=== PATIENT | male | born 1995 | race Caucasian/White ===

== ENCOUNTER 2016-09-15 22:31 | Emergency (ER) | payer OTHER, BC ==
[~2016-09-15] VITALS: Ht 167.6 cm; Wt 72.6 kg
[~2016-09-15 22:31] MED LIST: IBP800T PO
[2016-09-15] MEDS ORDERED: HYDROcodone/APAP 5 MG/325 MG (LORTAB) TAB PO STA (22:52)
[2016-09-15] MEDS ORDERED: KETOROLAC 60 MG/2 ML VIAL IM STA (22:52)
--- NOTE | 2016-09-15 22:52 | ED Lower Extremity ---
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 He says that his right knee gave out underneath him and he felt the ground. He did not catch the and foot in the ladder nor did he injure his knee on the fall. He states in the past he has had [address] Paul for the meniscus on his right knee. He's previously injured his knee playing football. He says there is no swelling that the pain is to the point he cannot put weight on it. He came straight here from work and has not taken anything today. He does not have any numbness or tingling in his foot and he can only bear toe-touch pressure. He has crutches and a knee brace at home. Allergies and Home Medications Allergies Coded Allergies: No Known Drug Allergies (Unverified , 09/13/12) Home Medications Hydrocodone/Acetaminophen 1 Each Tablet, 1 EACH PO Q6H PRN for BREAKTHROUGH PAIN , #15 Ref 0 Prescribed by: DAMARIS ASHRAF on 09/15/16 8506 Constitutional: No chills, No diaphoresis, No fever, No malaise Respiratory: No cough, No short of breath Gastrointestinal: No constipation, No diarrhea, No nausea Genitourinary: No discharge, No dysuria Musculoskeletal: see HPI, No back pain, joint pain Skin: No pruritus, No rash Past Gurjbqj-Kgygoq-Aweiep Hx Patient Social History Alcohol Use: Occasionally Uses Recreational Drug Use: No Smoking Status: Current Everyday Smoker Type Used: Cigarettes 2nd Hand Smoke Exposure: Yes Recent Foreign Travel: No Contact w/Someone Who Travel: No Recent Infectious Disease Expo: No Recent Hopitalizations: No Immunizations Up To Date Tetanus Booster (TDap): Unknown PED Vaccines UTD: Yes Seasonal Allergies Seasonal Allergies: No Surgeries HX Surgeries: Yes Surgeries: Orthopedic Respiratory Hx Respiratory Disorders: No Cardiovascular Hx Cardiac Disorders: No Neurological Hx Neurological Disorders: No Reproductive System Hx Reproductive Disorders: No Genitourinary Hx Genitourinary Disorders: No Gastrointestinal Hx Gastrointestinal Disorders: No Musculoskeletal Hx Musculoskeletal Disorders: No Endocrine Hx Endocrine Disorders: No HEENT HX ENT Disorders: No Cancer Hx Cancer: No Psychosocial Hx Psychiatric Problems: No Family Medical History Significant Family History: No Pertinent Family Hx Physical Exam Vital Signs Vital Sign - Last 12Hours 09/15/16 22:38 Temp 97.8 Pulse 67 Resp 18 B/P (MAP) 130/79 Pulse Ox 98 O2 Delivery Room Air Capillary Refill : Less Than 3 Seconds General Appearance: WD/WN, mild distress Cardiovascular: normal peripheral pulses, regular rate, rhythm Respiratory: lungs clear, normal breath sounds Gastrointestinal: non tender, soft Knees: left knee non-tender, left knee normal inspection, left knee normal range of motion, left knee no evidence of injury (posterior and anterior drawer test negative. There is no laxity nor tenderness on the lateral or medial collateral ligaments.), right knee bone tenderness (lateral especially as well as the medial anterior tibial plateau enemas to palpation.) Ankles: bilateral ankle non-tender, bilateral ankle normal inspection, bilateral ankle normal range of motion Neurologic/Tendon: normal sensation, normal motor functions, normal tendon functions, responds to pain Neurologic/Psychiatric: no motor/sensory deficits, alert, oriented x 3 Skin: normal color, warm/dry Progress/Results/Core Measures Results/Orders My Orders Orders - DAMARIS ASHRAF Knee, Right, 3 Views (09/15/16 22:52) Hydrocodone/Apap 5/325 Tablet (Lortab 5 (09/15/16 22:52) Ketorolac Injection (Toradol Injection) (09/15/16 22:52) Vital Signs/I&O Vital Sign - Last 12Hours 09/15/16 22:38 Temp 97.8 Pulse 67 Resp 18 B/P (MAP) 130/79 Pulse Ox 98 O2 Delivery Room Air Blood Pressure Mean: 96 Progress Note : Time: 22:56 Progress Note We'll get some images and have him follow-up with Dr. Paul we'll give him some pain medicine and start him on some NSAIDs get him back in his knee brace when necessary he has crutches. Diagnostic Imaging Diagonstic Imaging: Xray Plain Films/CT/US/NM/MRI: knee Comments No acute osseous abnormalities noted. Reviewed: Reviewed by Me Departure Impression Impression: Primary Impression: Knee pain Qualified Codes: M25.561 - Pain in right knee Disposition: 01 HOME, SELF-CARE Condition: Stable Departure-Patient Inst. Decision time for Depature: 00:43 Referrals: [facility] (PCP/Family) Primary Care Physician Patient Instructions: Knee Sprain (DC) Add. Discharge Instructions: Apply ice for 20-40 minutes 4 times a day for the first 3-4 days after injury. Keep the knee elevated when at rest. Take ibuprofen 4 tablets 3 times a day for the next 2 weeks. Use Tylenol 1000 mg every 8 hours if you needed for the pain. Wear a knee brace while using the knee. No weightbearing while on your feet for the next 3 days above 20 pounds. If the Tylenol or ibuprofen are not helping been using ice. If the ice is not doing it for your pain and you're still having severe pain then you can take one of the hydrocodone pills. The hydrocodone can cause drowsiness as well as constipation so he should be on some kind of laxative every dated using hydrocodone please do not drive or operate heavy machinery while under the influence hydrocodone. Tomorrow morning call your PCP or Dr. Paul's office and get an appointment to be evaluated for your knee. All discharge instructions reviewed with patient and/or family. Voiced understanding. Scripts Hydrocodone/Acetaminophen (Hydrocodon -Acetaminophen 5-325) 1 Each Tablet 1 EACH PO Q6H Y for BREAKTHROUGH PAIN, #15 TAB 0 Refills Prov: DAMARIS ASHRAF 09/15/16 Work/School Note: Work Release Form Date Seen in the Emergency Department: Sep 15, 2016 Return to Work: Sep 16, 2016 Restrictions: Need Release from Doctor Other Restrictions Listed Below: No lifting more than 20 pounds while weightbearing on his right knee. Copy Copies To 1: KIARRA ROSSI TITUS J Sep 15, 2016 22:52
[2016-09-15] MEDS ORDERED: HYDR-3812 PO (22:59)
[2016-09-16 00:54] VITALS: BP 127/65
--- NOTE | 2016-09-16 07:15 | Diagnostic Imaging Report ---
INDICATION: Twisting injury pain. FINDINGS: No evidence for joint effusion. No loose body, fracture, dislocation or articular irregularities. IMPRESSION: Negative. Dictated by: Dictated on workstation # [id number]
== END 2016-09-16 00:54 | disposition home or self-care (01) ==
LOC: EDUNIT# 22:31 → ER 22:32
DX: M25.561 Pain in right knee (principal); F17.210 Nicotine dependence, cigarettes, uncomplicated; W50.0XXA Accidental hit or strike by another person, initial encounter; Y92.89 Other specified places as the place of occurrence of the external cause
CPT/HCPCS: 73562; 99283

== ENCOUNTER 2016-11-04 19:04 | Emergency (ER) | payer OTHER, BC ==
[~2016-11-04] VITALS: Ht 167.6 cm; Wt 72.6 kg
[~2016-11-04 19:04] MED LIST changes: +HYDR-3812 PO
--- NOTE | 2016-11-04 19:44 | ED Upper Extremity ---
General Chief Complaint: Upper Extremity Stated Complaint: LT HAND INDEX FINGER INJ Nursing Triage Note: c/o L 2nd finger injury after shooting self in finger with nail gun Nursing Sepsis Screen: No Definite Risk Source: patient Exam Limitations: no limitations History of Present Illness Time seen by provider: 19:44 Allergies and Home Medications Allergies Coded Allergies: No Known Drug Allergies (Unverified , 09/13/12) Home Medications Cephalexin 500 Mg Capsule, 500 MG PO TID, #21 Ref 0 Prescribed by: GLADIS IBARRA on 11/04/16 1949 Hydrocodone/Acetaminophen 1 Each Tablet, 1 EACH PO Q6H PRN for BREAKTHROUGH PAIN , #15 Ref 0 Prescribed by: DAMARIS ASHRAF on 09/15/16 2259 Hydrocodone/Acetaminophen 1 Each Tablet, 1 EACH PO Q4H PRN for PAIN, #14 Ref 0 Prescribed by: GLADIS IBARRA on 11/04/16 1950 Past Quxvtyi-Lfpova-Mmaeex Hx Patient Social History Alcohol Use: Occasionally Uses Number of Drinks Today: AA Alcohol Beverage of Choice: Beer Recreational Drug Use: No Type Used: Cigarettes 2nd Hand Smoke Exposure: Yes Recent Foreign Travel: No Contact w/Someone Who Travel: No Recent Infectious Disease Expo: No Recent Hopitalizations: No Immunizations Up To Date Tetanus Booster (TDap): Unknown PED Vaccines UTD: Yes Seasonal Allergies Seasonal Allergies: No Surgeries History of Surgeries: Yes Surgeries: Orthopedic Respiratory History of Respiratory Disorde: No Cardiovascular History of Cardiac Disorders: No Neurological History of Neurological Disord: No Reproductive System Hx Reproductive Disorders: No Genitourinary History of Genitourinary Disor: No Gastrointestinal History of Gastrointestinal Di: No Musculoskeletal History of Musculoskeletal Dis: No Endocrine History of Endocrine Disorders: No HEENT History of HEENT Disorders: No Cancer History of Cancer: No Psychosocial History of Psychiatric Problem: No Integumentary History of Skin or Integumenta: No Family Medical History Significant Family History: No Pertinent Family Hx Physical Exam Vital Signs Vital Sign - Last 12Hours 11/04/16 19:36 Temp 98.2 Pulse 68 Resp 18 B/P (MAP) 118/62 Pulse Ox 99 Capillary Refill : Less Than 3 Seconds Progress/Results/Core Measures Results/Orders My Orders Orders - GLADIS IBARRA Hand, Left, 3 Views (11/04/16 19:21) Hydrocodone/Apap 10/325 Tablet (Lortab 1 (11/04/16 19:59) Vital Signs/I&O Vital Sign - Last 12Hours 11/04/16 19:36 Temp 98.2 Pulse 68 Resp 18 B/P (MAP) 118/62 Pulse Ox 99 Diagnostic Imaging Diagonstic Imaging: Xray Plain Films/CT/US/NM/MRI: hand Comments FINDINGS: There appears to be a small fracture demonstrated off of the volar aspect of the proximal phalanx of the left second digit. There is no dislocation. No additional fractures are evident. There is no retained foreign body. IMPRESSION: There is a suspected small avulsion fracture demonstrated off of the proximal aspect of the proximal phalanx of the left second digit. There is no retained foreign body. Dictated on workstation # [id number] Reviewed: Reviewed by Me (radiology report reviewed by me) Departure Impression Impression: Primary Impression: Avulsion fracture of proximal phalanx of finger Additional Impression: Puncture wound of left index finger Disposition: 01 HOME, SELF-CARE Condition: Improved Departure-Patient Inst. Decision time for Depature: 20:12 Referrals: [facility] (PCP/Family) Primary Care Physician INGE VANCE DO Patient Instructions: Finger Fracture (DC), Wound Care (DC) Add. Discharge Instructions: All discharge instructions reviewed with patient and/or family. Voiced understanding. Medications as instructed. No ibuprofen or Aleve. Elevate the hand on pillows. Ice pack for 20 minute intervals as needed for pain. Shower with antibacterial soap. Splint as instructed. Follow-up with Dr. Vance as an outpatient for recheck and further evaluation of the finger numbness within the next 7 days, call tomorrow morning for appointment time. Return to the emergency department for worsened symptoms, redness, fever, drainage, or any other concerns. Scripts Hydrocodone/Acetaminophen (Hydrocodon -Acetaminophen 5-325) 1 Each Tablet 1 EACH PO Q4H Y for PAIN, #14 TAB 0 Refills Prov: GLADIS IBARRA 11/04/16 Cephalexin (Cephalexin) 500 Mg Capsule 500 MG PO TID, #21 CAP 0 Refills Prov: GLADIS IBARRA 11/04/16 GLADIS IBARRA Nov 04, 2016 19:44
[2016-11-04] MEDS ORDERED: CEPH500C PO (19:49)
[2016-11-04] MEDS ORDERED: HYDR-3812 PO ×2 (19:49→19:50)
[2016-11-04] MEDS ORDERED: HYDROcodone/APAP 10 MG/325 MG (LORTAB) TAB PO STA (19:59)
--- NOTE | 2016-11-04 20:09 | Diagnostic Imaging Report ---
EXAMINATION: Left hand. INDICATION: Shot a nail through hand with a nail gun. FINDINGS: There appears to be a small fracture demonstrated off of the volar aspect of the proximal phalanx of the left second digit. There is no dislocation. No additional fractures are evident. There is no retained foreign body. IMPRESSION: There is a suspected small avulsion fracture demonstrated off of the proximal aspect of the proximal phalanx of the left second digit. There is no retained foreign body. Dictated by: Dictated on workstation # [id number]
[2016-11-04 20:18] VITALS: BP 118/62
== END 2016-11-04 20:18 | disposition home or self-care (01) ==
LOC: EDUNIT# 19:04 → ER 19:07
DX: S62.611A Displaced fracture of proximal phalanx of left index finger, initial encounter for closed fracture (principal); W34.09XA Accidental discharge from other specified firearms, initial encounter
CPT/HCPCS: 29130; 73130